=== PATIENT | female | born 2000 ===

== ENCOUNTER 2022-03-25 11:49 | Emergency (ER) | payer OTHER ==
[2022-03-25] MEDS ORDERED: methylPREDNISolone Sodium Succinate 125 MG/2 ML SDV IVPUSH ONE (12:10)
[2022-03-25] MEDS ORDERED: diphenhydrAMINE 50 MG/ML SDV IVPUSH ONE (12:10)
[2022-03-25] MEDS ORDERED: Famotidine 20 MG/2 ML SDV IVPUSH ONE (12:10)
== END 2022-03-25 13:13 | disposition home or self-care (01) ==
LOC: DL.ED 11:49
DX: L50.9 Urticaria, unspecified (principal); L23.9 Allergic contact dermatitis, unspecified cause
CPT/HCPCS: 96374; 96375; 99282; J1200; J2930; J3490